=== PATIENT | female | born 1985 | race African-American/Black ===

== ENCOUNTER 2017-08-28 01:52 | Emergency (ER) | payer MEDICAID ==
[~2017-08-28] VITALS: Ht 162.6 cm; Wt 96.0 kg
[2017-08-28 02:05] VITALS: BP 133/88
== END 2017-08-28 03:45 | disposition left against medical advice (07) ==
LOC: ER 01:52
DX: R07.9 Chest pain, unspecified (principal); Z53.21 Procedure and treatment not carried out due to patient leaving prior to being seen by health care provider
CPT/HCPCS: 93005